=== PATIENT | male | born 1950 | race Caucasian/White ===

== ENCOUNTER → 2018-08-22 | Day surgery (SDC) | payer MEDICARE ==
[~2018-08-22] VITALS: Ht 190.5 cm; Wt 108.0 kg
[~2018-08-22] MED LIST: ATORVASTATIN CA40 M1 PO; DUTASTERIDE0.5 MG PO; LEXAPRO PO; LYRICA CR165 MG PO; LYRICA225 MG PO; METOPROLOL SUCC25 M2 PO; OMEPRAZOLE D/R20 MG PO
[2018-08-22 10:00] VITALS: BP 127/68
[2018-08-22 12:17] VITALS: BP 118/68
[2018-08-22 12:34] VITALS: BP 116/74
[2018-08-22 12:49] VITALS: BP 118/75
== END | disposition home or self-care (01) ==
LOC: SDC 08-19 16:15
DX: K29.70 Gastritis, unspecified, without bleeding (principal); K21.9 Gastro-esophageal reflux disease without esophagitis; I10 Essential (primary) hypertension; E78.5 Hyperlipidemia, unspecified; E66.01 Morbid (severe) obesity due to excess calories; Z68.41 Body mass index [BMI] 40.0-44.9, adult; I25.10 Atherosclerotic heart disease of native coronary artery without angina pectoris; F41.9 Anxiety disorder, unspecified; F32.9 Major depressive disorder, single episode, unspecified; Z88.8 Allergy status to other drugs, medicaments and biological substances; Z79.82 Long term (current) use of aspirin; Z79.899 Other long term (current) drug therapy; Z98.890 Other specified postprocedural states; Z87.891 Personal history of nicotine dependence